=== PATIENT | male | born 1935 | race Caucasian/White ===

== ENCOUNTER 2023-04-15 06:49 | Day surgery (SDC) | payer MEDICARE ==
[2023-04-13 14:49] LABS: BASOPHILS # (AUTO) 0.01 K/uL (0.00-0.20); BASOPHILS % (AUTO) 0.1 % (0.0-5.0); EOSINOPHILS # (AUTO) 0.08 K/uL (0.00-0.70); EOSINOPHILS % (AUTO) 1.1 % (0.0-8.0); HEMATOCRIT 28.5 % (42-54); IMMATURE GRANULOCYTE ABSOLUTE 0.03 K/uL (0-1); LYMPHOCYTES # (AUTO) 1.7 K/uL (1.0-4.8); LYMPHOCYTES % (AUTO) 23.4 % (21.0-51.0); MEAN CORPUSCULAR HEMOGLOBIN 29.4 pg (27.0-33.0); MEAN CORPUSCULAR HGB CONC 31.6 g/dL (32.0-36.0); MEAN CORPUSCULAR VOLUME 93.1 fL (79-99); MONOCYTES # (AUTO) 0.6 K/uL (0.1-1.0); MONOCYTES % (AUTO) 8.1 % (3.0-13.0); NEUTROPHILS # (AUTO) 4.7 K/uL (1.8-7.7); NEUTROPHILS % (AUTO) 66.9 % (40.0-77.0); PLATELET COUNT (AUTO) 171 K/uL (130-400); RED BLOOD CELL COUNT(AUTO) 3.06 MIL/uL (4.50-6.20); RED CELL DISTRIBUTION WIDTH 15.1 % (11.0-15.5)
[2023-04-13 14:56] LABS: CREATININE 2.3 mg/dL (0.5-1.5); POTASSIUM 3.9 mmol/L (3.5-5.1)
[2023-04-13 15:00] LABS: INR 0.94 (0.85-1.15)
[2023-04-13 15:11] VITALS: BP 125/53; PULSE 75; RESP 18
[~2023-04-15] VITALS: Ht 167.6 cm; Wt 103.3 kg
[~2023-04-15 06:49] MED LIST: CILO50TA2 PO; CLOP75TA32 PO; FURO20TA4 PO; HYDR-4154 PO; PREG100C56 PO; SIMV40TA59 PO; TAMS-1 PO
[2023-04-15] MEDS ORDERED: SODIUM BICARB 8.4% 50ML SYRINGE IVP ONE (06:50)
[2023-04-15] MEDS ORDERED: DOPAMINE HCL 400 MG/D5%-WATER 250 ML IV ONE (06:50)
[2023-04-15] MEDS ORDERED: AMIODARONE 150MG VIAL IV ONE (06:50)
[2023-04-15] MEDS ORDERED: LIDOCAINE PF 100MG/5ML (2%) SYRINGE 5ML IVP ONE (06:50)
[2023-04-15] MEDS ORDERED: EPINEPHRINE 1MG/10ML(1:10,000) 0.1 MG/ML SYG IVP ONE (06:50)
[2023-04-15 07:30] VITALS: BP 140/54; PULSE 73; RESP 15
[2023-04-15] MEDS ORDERED: 0.9%NACL 1000ML 1,000 ML IV ONE (07:52)
[2023-04-15] MEDS ORDERED: IODIXANOL 320 MG/ML 100 ML VIAL ONE (08:52)
[2023-04-15] MEDS ORDERED: LIDOCAINE HCL 400MG/20ML VIAL ONE ×2 (08:52→10:06)
[2023-04-15] MEDS ORDERED: MIDAZOLAM HCL 1 MG/ML 2ML VIAL ONE (09:15)
[2023-04-15] MEDS ORDERED: HEPARIN 10,000 UNIT/10ML (1,000 UNIT/ML) VIAL ONE (09:38)
[2023-04-15] MEDS ORDERED: SODIUM BICARB 50MEQ 50ML VIAL 50 ML ONE ×3 (10:20→10:53)
[2023-04-15] MEDS ORDERED: EPINEPHRINE PF 1MG (1:1,000) 1 MG/ML AMP ONE (10:20)
[2023-04-15 10:21] LABS: ABG HCO3 15.9 mmol/L (21.0-28.0); ABG PCO2 45 mmHg (35-48); ABG PH 7.165 (7.35-7.450); CARBON MONOXIDE 0.3; DEVICE COMMENT A-LINE; PO2, ARTERIAL BG > 500.0 mmHg (83.0-108.0)
[2023-04-15] MEDS ORDERED: EPINEPHRINE 1 MG/ML 30ML VIAL IJ ONE (10:23)
[2023-04-15 10:50] LABS: ABG BASE EXCESS -16.6 mmol/L (-2.0-3.0); ABG HCO3 13.8 mmol/L (21.0-28.0); ABG PCO2 56 mmHg (35-48); CARBON MONOXIDE 0.2; DEVICE COMMENT A-LINE AMBU; HHb 15.9
[2023-04-15 10:59] LABS: ABG BASE EXCESS 15.6 mmol/L (-2.0-3.0); ABG HCO3 44.4 mmol/L (21.0-28.0); ABG OXYGEN SATURATION 80.2 % (95.0-99.0); ABG PCO2 94 mmHg (35-48); ABG PH 7.293 (7.35-7.450); CARBON MONOXIDE 0.5; HHb 19.6; PO2, ARTERIAL BG 55.2 mmHg (83.0-108.0); VENT MODE, BG AMBU (ROOM AIR)
== END 2023-04-15 16:00 ==
LOC: DAH 06:49
PROVIDERS: ATTEND Internal Medicine Interventional Cardiology
DX: I49.5 Sick sinus syndrome (principal); R55 Syncope and collapse; R42 Dizziness and giddiness; I47.29 Other ventricular tachycardia; I31.39 Other pericardial effusion (noninflammatory); G60.8 Other hereditary and idiopathic neuropathies; I10 Essential (primary) hypertension; E78.2 Mixed hyperlipidemia; E66.01 Morbid (severe) obesity due to excess calories; I73.9 Peripheral vascular disease, unspecified; M79.609 Pain in unspecified limb; Z79.899 Other long term (current) drug therapy; Z88.0 Allergy status to penicillin; Z88.6 Allergy status to analgesic agent; Z68.34 Body mass index [BMI] 34.0-34.9, adult
CPT/HCPCS: 80048 ×2; 85025; 85610; 85730; 36415 ×2; 71045; 93005; 33017; 82947 ×3; 33210; 33274; 84132 ×3; 82803 ×3; 85018 ×3; 92950; 31500; 82435 ×3; 84295 ×3; 83605 ×3; A4649; C1769 ×2; C1894 ×4; C1786; J3490 ×6; J7030; J0171 ×3; J2001; J1644 ×3; J2250; J1265; Q9967; J0282; A4215; A4222; A4221; A4663; A4216; A4606; A4223 ×3; 93308; 99156; 99157